=== PATIENT | male | born 1960 | race Caucasian/White ===

== ENCOUNTER 2017-02-20 16:31 | Emergency (ER) | payer MEDICAID ==
[~2017-02-20] VITALS: Ht 170.2 cm; Wt 81.6 kg
[2017-02-20 16:31] VITALS: BP 118/65
[2017-02-20] MEDS ORDERED: METF10002 PO (16:51)
[2017-02-20] MEDS ORDERED: IBUPROFEN 400 MG TABLET PO ONE (17:00)
[2017-02-20] MEDS ORDERED: IBUPROFEN 400 MG TABLET ONE (17:05)
== END 2017-02-20 18:05 | disposition home or self-care (01) ==
LOC: ER 16:35
DX: S16.1XXA Strain of muscle, fascia and tendon at neck level, initial encounter (principal); M25.511 Pain in right shoulder; V43.52XA Car driver injured in collision with other type car in traffic accident, initial encounter; Y93.89 Activity, other specified; Y92.413 State road as the place of occurrence of the external cause; Y99.8 Other external cause status
CPT/HCPCS: 72125; 99284; A4606; Z7610

== ENCOUNTER 2017-05-30 15:52 | Inpatient (IN) | payer MEDICAID, OTHER ==
[~2017-05-30] VITALS: Ht 175.3 cm; Wt 78.9 kg
[~2017-05-30 15:52] MED LIST: METF10002 PO
--- NOTE | 2017-05-30 16:13 | NUR ---
pt ambulatory to er bed 11. c/o intermitttent pressure like midsternal chest pain x 1 week. gowned and placed on monitor. stable vitals. awaiting md gerber.
--- NOTE | 2017-05-30 16:39 | NUR ---
dr shirley at bedside for eval.
--- NOTE | 2017-05-30 16:47 | NUR ---
iv line started blood drawn and sent to lab.
[2017-05-30 16:53] LABS: BASOPHILS % (AUTO) 0.5 % (0.0-2.0); EOSINOPHILS # (AUTO) 0.2 /CMM (0.0-0.7); EOSINOPHILS % (AUTO) 1.8 % (0.0-6.0); HEMATOCRIT 43 % (39-51); LYMPHOCYTES # (AUTO) 1.6 /CMM (0.8-4.8); MEAN CORPUSCULAR HEMOGLOBIN 30 PG (26.0-33.0); MEAN CORPUSCULAR HGB CONC 35 g/dl (31.0-36.0); MEAN CORPUSCULAR VOLUME 88 fL (80-96); MONOCYTES # (AUTO) 0.3 /CMM (0.1-1.30); MONOCYTES % (AUTO) 3.4 % (2.0-12.0); NEUTROPHILS # (AUTO) 7.6 /CMM (1.8-8.9); NEUTROPHILS % (AUTO) 78.3 % (43.0-81.0); PLATELET COUNT (AUTO) 208 /CMM (150-450); RDW COEFFICIENT OF VARIATION 12.7 (11.5-15.0); RED BLOOD CELL COUNT(AUTO) 4.92 MIL/uL (4.5-6.0); WHITE BLOOD COUNT (AUTO) 9.7 K/uL (4.3-11.0)
[2017-05-30] MEDS ORDERED: ASPIRIN 325 MG TABLET ONE (16:53)
--- NOTE | 2017-05-30 16:57 | NUR ---
radiology at bedside for chest xray.
[2017-05-30] MEDS ORDERED: ASPIRIN 325 MG TABLET PO ONE (17:00)
[2017-05-30 17:03] LABS: CALCIUM, SERUM 9.1 mg/dL (8.5-10.1); CARBON DIOXIDE 26 mmol/L (21-32); CHLORIDE 104 mmol/L (98-107); GLUCOSE 108 mg/dL (74-106); POTASSIUM 4.2 mmol/L (3.5-5.1); SODIUM SERUM 138 mmol/L (136-145); UREA NITROGEN, BLOOD 20 mg/dL (7-18)
[2017-05-30 17:08] LABS: INR 0.95 (0.85-1.15)
[2017-05-30 17:13] LABS: TROPONIN I < 0.017 ng/mL (0.00-0.056)
--- NOTE | 2017-05-30 18:47 | NUR ---
report given to breezy. pt awaiting transfer to floor.
--- NOTE | 2017-05-30 19:20 | NUR ---
MICROFILM PROCESSOR NOTES PATIENT BROUGHT INTO UNIT VIA GURNEY, TRANSFERRED FROM ER, ABLE TO AMBULATE FROM [place] TO BED. ALERT AND ORIENTED X 4, NO SOB NOTED, BREATHING EVEN AND UNLABORED IN NO ACUTE DISTRESS, NO C/O PAIN AT THIS TIME BUT VERBALIZED MIDSTERNAL DISCOMFORT BUT IN NO NEED OF MEDICATION. ORIENTED PATIENT TO ADMISSION PROCESS, ROOM, CALL LIGHT AND USE OF CALL LIGHT, VERBALIZED UNDERSTANDING. PATIENT'S BED PLACED IN LOW POSITION AND LOCKED IN PLACE. ALL PATIENT'S NEEDS ATTENDED TO. WILL CONTINUE TO MONITOR PATIENT.
[2017-05-30 20:00] VITALS: BP 135/82
[2017-05-30] MEDS ORDERED: DEXTROSE 50%-WATER 50 ML DISP.SYRIN IV PRN (20:30)
[2017-05-30] MEDS ORDERED: *INSULIN REGULAR(HUMULIN R)HUM 100 UNIT/ML VIAL SQ PRN (20:30)
[2017-05-30] MEDS ORDERED: INSULIN REGULAR, HUMAN 100 UNIT/ML 3 ML VIAL SQ PRN (20:30)
--- NOTE | 2017-05-30 22:00 | NUR ---
RN NOTES PATIENT'S BLOOD SUGAR @ 164 MG/DL. PATIENT REFUSED ADMINISTRATION OF INSULIN. EXPLAINED RISKS AND BENEFITS X 3, PER PATIENT HE DOESN'T NEED IT AND THAT HE IS MAINTAINING HIS BLOOD SUGAR. RESPECTED PATIENT'S REFUSAL. WILL CONTINUE TO MONITOR.
[2017-05-30] MEDS: BLOOD SUGAR DIAGNOSTIC 1 EACH STRIP VI SCH (22:25)
--- NOTE | 2017-05-30 23:40 | NUR ---
RN NOTES RECEIVED CALL FROM DR. RUANO WITH ADDITIONAL ADMISSION ORDERS. ALL ORDERS NOTED AND CARRIED OUT. PATIENT MADE AWARE AND AGREES. IN NO ACUTE DISTRESS. WILL CONTINUE TO MONITOR.
[2017-05-31] VITALS: BP 130/81
[2017-05-31] MEDS ORDERED: MORPHINE SULFATE INJ 4 MG/ML DISP.SYRIN IVP PRN
[2017-05-31] MEDS ORDERED: NITROGLYCERIN 0.4 MG/TAB BOTTLE SL PRN
[2017-05-31] MEDS ORDERED: DIPH25CA83 PO (01:54)
[2017-05-31 04:00] VITALS: BP 135/70
--- NOTE | 2017-05-31 06:26 | NUR ---
RN NOTES PATIENT UNDER TELE MONITORING WITH SINUS RHYTHM @ 85 BPM.
--- NOTE | 2017-05-31 06:26 | NUR ---
RN CLOSING NOTES PATIENT IN BED, ASLEEP BUT EASILY AWOKEN, ALERT AND ORIENTED X 4, VERBALLY RESPONSIVE, NO SOB, BREATHING EVEN AND UNLABORED, IN NO ACUTE DISTRESS. PATIENT VERBALIZED THAT HE CONTINUES TO HAVE DISCOMFORT ON THE MIDSTERNAL AREA BUT NOT CAUSING HIM DISTRESS OR NEED FOR PAIN MEDICATION. PT'S BLOOD SUGAR LEVEL CHECKED @ 155 MG/DL. PATIENT CONTINUES TO REFUSE INSULIN PER SLIDING SCALE. EXPLAINED RISKS AND BENEFITS TO PATIENT BUT CONTINUES TO REFUSE. ALL PATIENT'S NEEDS MET, BED PLACED IN LOW POSITION AND LOCKED IN PLACE. WILL ENDORSE TO AM SHIFT NURSE FOR CONTINUITY OF CARE.
[2017-05-31 06:54] LABS: BASOPHILS % (AUTO) 0.5 % (0.0-2.0); EOSINOPHILS # (AUTO) 0.3 /CMM (0.0-0.7); EOSINOPHILS % (AUTO) 3.3 % (0.0-6.0); HEMATOCRIT 42 % (39-51); HEMOGLOBIN 14.1 g/dL (13.5-17.5); LYMPHOCYTES # (AUTO) 2.2 /CMM (0.8-4.8); LYMPHOCYTES % (AUTO) 26.5 % (20.0-44.0); MEAN CORPUSCULAR HEMOGLOBIN 30 PG (26.0-33.0); MEAN CORPUSCULAR HGB CONC 34 g/dl (31.0-36.0); MEAN CORPUSCULAR VOLUME 89 fL (80-96); MONOCYTES # (AUTO) 0.7 /CMM (0.1-1.30); MONOCYTES % (AUTO) 8.8 % (2.0-12.0); NEUTROPHILS # (AUTO) 5.1 /CMM (1.8-8.9); NEUTROPHILS % (AUTO) 60.9 % (43.0-81.0); PLATELET COUNT (AUTO) 191 /CMM (150-450); RDW COEFFICIENT OF VARIATION 13.5 (11.5-15.0); RED BLOOD CELL COUNT(AUTO) 4.66 MIL/uL (4.5-6.0); WHITE BLOOD COUNT (AUTO) 8.3 K/uL (4.3-11.0)
[2017-05-31 07:00] LABS: TROPONIN I < 0.017 ng/mL (0.00-0.056)
[2017-05-31] MEDS: BLOOD SUGAR DIAGNOSTIC 1 EACH STRIP VI SCH (07:16)
[2017-05-31 07:23] LABS: CALCIUM, SERUM 9.2 mg/dL (8.5-10.1); CARBON DIOXIDE 27 mmol/L (21-32); CHLORIDE 103 mmol/L (98-107); GLUCOSE 150 mg/dL (74-106); POTASSIUM 4.5 mmol/L (3.5-5.1); SODIUM SERUM 139 mmol/L (136-145); UREA NITROGEN, BLOOD 18 mg/dL (7-18)
--- NOTE | 2017-05-31 07:25 | NUR ---
GARDEN EQUIPMENT MECHANIC OPENING NOTES RECEIVED PT FROM [facility] NURSE IN STABLE CONDITION. PT IS A/O X3. NO SOB OR SIGNS OF DISTRESS NOTED. BREATHING IS EVEN AND UNLABORED. PT IS SINUS RHYTHM ON THE TELE MONITOR WITH A HR OF 61. PT DENIES ANY CHEST PAIN AT THIS TIME. IV TO RIGHT AC NOTED TO BE PATENT AND INTACT. NO REDNESS OR SIGNS OF INFILTRATION NOTED. BED IN LOW LOCKED POSITION, SIDE RAILS UP X2, CALL LIGHT WITHIN REACH. WILL CONTINUE TO MONITOR.
[2017-05-31 08:00] VITALS: BP 138/70
[2017-05-31] MEDS ORDERED: ASPIRIN 81 MG TAB.CHEW PO SCH (09:00)
--- NOTE | 2017-05-31 11:26 | NUR ---
CEREAL POPPERGEAR CUTTER NOTES PT WAS DISCHARGED FROM FACILITY IN STABLE CONDITION. ALL NEEDS WERE MET DURING SHIFT AND ORDERS CARRIED OUT ACCORDINGLY. ALL DISCHARGE INSTRUCTIONS DISCUSSED WITH PT UTILIZING EXIT CARE MATERIALS. PT WAS REMINDED TO FOLLOW UP WITH HIS PRIMARY CARE PHYSICIAN ALONG WITH SCHEDULING A STRESS TEST. PT ACKNOWLEDGED ALL DISCHARGE INSTRUCTIONS AND VERBALIZED FULL UNDERSTANDING. HE SIGNED ALL RESPECTIVE PAPERWORK. IV SUCCESSFULLY REMOVED WITHOUT ANY COMPLICATIONS. HE WAS SAFELY ESCORTED TO THE MAIN LOBBY AND LEFT VIA PRIVATE VEHICLE.
== END 2017-05-31 11:30 | disposition home or self-care (01) | DRG 198 ==
LOC: ER 16:00 → TELE 20:13
PROVIDERS: ADMIT Nurse Practitioner Acute Care; ATTEND Nurse Practitioner Acute Care
DX: I24.9 Acute ischemic heart disease, unspecified (principal); E11.9 Type 2 diabetes mellitus without complications; E78.5 Hyperlipidemia, unspecified; Z82.49 Family history of ischemic heart disease and other diseases of the circulatory system
CPT/HCPCS: 36415; 71045-TC; 80048-TC; 82962-TC; 84484-TC; 85025-TC; 85730-TC; 87081-TC; 93307-TC; A4606; J1815; Z7610

== ENCOUNTER 2019-06-15 15:24 | Emergency (ER) | payer OTHER ==
[~2019-06-15] VITALS: Ht 175.3 cm; Wt 78.0 kg
[~2019-06-15 15:24] MED LIST changes: +DIPH25CA83 PO; +METF-442 PO; -METF10002 PO
--- NOTE | 2019-06-15 15:40 | NUR ---
RASH TO CHEST AREA NOTED TODAY WHILE TAKING A SHOWER. PATIENT A/OX4, BREATHING EVEN AND UNLABORED, NO SOB NOTED. NEEDS ATTENDED.
[2019-06-15 16:21] LABS: BASOPHILS # (AUTO) 0.1 /CMM (0.0-0.2); BASOPHILS % (AUTO) 0.7 % (0.0-2.0); EOSINOPHILS % (AUTO) 0.4 % (0.0-6.0); HEMATOCRIT 43 % (39-51); HEMOGLOBIN 14.3 g/dL (13.5-17.5); LYMPHOCYTES # (AUTO) 0.9 /CMM (0.8-4.8); MEAN CORPUSCULAR HGB CONC 33 g/dl (31.0-36.0); MEAN CORPUSCULAR VOLUME 89 fL (80-96); MONOCYTES # (AUTO) 0.4 /CMM (0.1-1.30); NEUTROPHILS # (AUTO) 6.7 /CMM (1.8-8.9); NEUTROPHILS % (AUTO) 82.9 % (43.0-81.0); PLATELET COUNT (AUTO) 167 /CMM (150-450); RED BLOOD CELL COUNT(AUTO) 4.83 MIL/uL (4.5-6.0); WHITE BLOOD COUNT (AUTO) 8.1 K/uL (4.3-11.0)
[2019-06-15 16:37] LABS: CALCIUM, SERUM 9.1 mg/dL (8.5-10.1); CARBON DIOXIDE 29 mmol/L (21-32); CHLORIDE 102 mmol/L (98-107); GLUCOSE 146 mg/dL (74-106); POTASSIUM 4.8 mmol/L (3.5-5.1); SODIUM SERUM 138 mmol/L (136-145); UREA NITROGEN, BLOOD 21 mg/dL (7-18)
[2019-06-15 16:43] LABS: ALANINE AMINOTRANSFERASE 49 U/L (12-78); ALBUMIN 3.9 g/dL (3.4-5.0); ALKALINE PHOSPHATASE 69 U/L (46-116); ASPARTATE AMINOTRANSFERASE 30 U/L (15-37); BILIRUBIN,DIRECT 0.1 mg/dL (0.0-0.2); BILIRUBIN,TOTAL 0.5 mg/dL (0.2-1.0); LIPASE 146 U/L (73-393); TOTAL PROTEIN, SERUM 6.9 g/dL (6.4-8.2)
[2019-06-15 17:35] VITALS: BP 127/76
--- NOTE | 2019-06-15 17:35 | NUR ---
Patient discharged to home in stable condition. Written and verbal after care instructions given. Patient verbalizes understanding of instruction.
== END 2019-06-15 17:35 | disposition home or self-care (01) ==
LOC: ER 15:24
DX: B02.9 Zoster without complications (principal); R10.13 Epigastric pain; E11.9 Type 2 diabetes mellitus without complications; Z60.2 Problems related to living alone; Z79.84 Long term (current) use of oral hypoglycemic drugs
CPT/HCPCS: 36415; 71045-TC; 80048-TC; 80076-TC; 83690-TC; 84484-TC; 85025-TC

== ENCOUNTER 2019-09-21 19:35 | Inpatient (IN) | payer OTHER ==
[~2019-09-21] VITALS: Ht 182.9 cm; Wt 78.0 kg
--- NOTE | 2019-09-21 19:41 | NUR ---
PT AAOX4. BIBSELF C/O MIDSTERNAL 6/ CP X COUPLE WEEKS. PT STATED NON RADIATING. PLACED ON ACCOUNTANT MANAGER AND PULSE OX. VSS. NO ACUTE DISTRESS NOTED. AWAITING MD FOR EVAL AND ORDERS.
--- NOTE | 2019-09-21 20:08 | NUR ---
RELATIONS MANAGER AT BEDSIDE FOR LABS.
[2019-09-21 20:10] LABS: BASOPHILS % (AUTO) 0.5 % (0.0-2.0); HEMATOCRIT 44 % (39-51); HEMOGLOBIN 14.7 g/dL (13.5-17.5); LYMPHOCYTES # (AUTO) 2.1 /CMM (0.8-4.8); LYMPHOCYTES % (AUTO) 23.8 % (20.0-44.0); MEAN CORPUSCULAR HGB CONC 33 g/dl (31.0-36.0); MEAN CORPUSCULAR VOLUME 91 fL (80-96); MONOCYTES # (AUTO) 0.7 /CMM (0.1-1.30); MONOCYTES % (AUTO) 7.6 % (2.0-12.0); NEUTROPHILS # (AUTO) 5.9 /CMM (1.8-8.9); NEUTROPHILS % (AUTO) 66.1 % (43.0-81.0); PLATELET COUNT (AUTO) 195 /CMM (150-450); RED BLOOD CELL COUNT(AUTO) 4.84 MIL/uL (4.5-6.0)
[2019-09-21 20:30] LABS: CALCIUM, SERUM 9.2 mg/dL (8.5-10.1); CREATININE 1.1 mg/dL (0.6-1.3); POTASSIUM 4.3 mmol/L (3.5-5.1)
[2019-09-21] MEDS ORDERED: ASPIRIN 325 MG TABLET ONE (21:24)
[2019-09-21] MEDS ORDERED: ASPIRIN 325 MG TABLET PO ONE (21:30)
--- NOTE | 2019-09-21 21:32 | NUR ---
PT RESTING COMFORTABLY. ON PHONE WITH FAMILY. VSS.
--- NOTE | 2019-09-21 22:05 | NUR ---
PT STATED HE DOES NOT RECALL MEDICATIONS HE TAKES AT HOME.
--- NOTE | 2019-09-21 22:38 | NUR ---
TELE BED: 938-5
--- NOTE | 2019-09-21 22:54 | NUR ---
REPORT GIVEN TO REBECCA ZHU FOR VENKAT
--- NOTE | 2019-09-21 23:09 | NUR ---
PT TRANSFERED PER ACLS PROTOCOL
--- NOTE | 2019-09-21 23:15 | NUR ---
RN NOTE PT ARRIVED AT 2310. PT IS A/O X 4, AMBULATORY, SR ON TELE MONITOR, DENIES ANY PAIN AT THIS TIME. IV #20 TO RAC PATENT AND INTACT AND FLUSHING WELL. VS 121/71 p 75. RR 14, O2 SAT 98% ON RA. CALL LIGHT WITHIN REACH, SAFETY MEASURES IN PLACE, WILL CONTINUE TO MONITOR PT.
[2019-09-21] MEDS ORDERED: NITROGLYCERIN 0.4 MG/TAB BOTTLE SL PRN (23:30)
[2019-09-21] MEDS ORDERED: MORPHINE SULFATE INJ 2 MG/ML DISP.SYRIN IV PRN (23:30)
[2019-09-21] MEDS ORDERED: Z GUARD REMEDY 2 OZ OINT TP PRN (23:30)
[2019-09-21] MEDS ORDERED: ZOLPIDEM TARTRATE 5 MG TABLET PO PRN (23:30)
[2019-09-21] MEDS ORDERED: ACETAMINOPHEN 325 MG TABLET PO PRN (23:30)
[2019-09-21] MEDS ORDERED: MAG HYDROX/AL HYDROX/SIMETH 30 ML UDC PO PRN (23:30)
[2019-09-21] MEDS ORDERED: MAGNESIUM HYDROXIDE 30 ML UDC PO PRN (23:30)
[2019-09-21] MEDS ORDERED: HYDROCODONE/APAP 5/325MG 1 EACH TABLET PO PRN (23:30)
[2019-09-21] MEDS ORDERED: ONDANSETRON HCL/PF 4 MG/2 ML VIAL IVP PRN (23:30)
[2019-09-22] VITALS: BP 121/71
--- NOTE | 2019-09-22 04:00 | NUR ---
RN NOTE PT REFUSED 0400 V/S PT STATES WANTS TO SLEEP, PT CURRENTLY S/R ON MONITOR HR 71.
--- NOTE | 2019-09-22 06:57 | NUR ---
RN MS CLOSING NOTE PT ASLEEP, RESTING COMFORTABLY, NO C/O PAIN DURING SHIFT. PT CURRENTLY SR ON TELE MONITOR. IV TO RAC PATENT AND INTACT AND FLUSHING WELL. PT ON RA. CALL LIGHT WITHIN REACH, SIDE RAILS UP X 2, BED LOCKED AND IN LOWEST POSITION. SAFETY MEASURES IN PLACE. ENDORSED TO AM RN FOR VENKAT. Addendum: 09/22/19 at 0710 by SADE TRACY RN ENDORSED TO AM RN TO OBTAIN ORDER FROM FOR DVT PROPHYLAXIS.
[2019-09-22] MEDS ORDERED: PANTOPRAZOLE 40 MG TABLET.DR PO SCH (07:30)
[2019-09-22 08:00] VITALS: BP 112/68
--- NOTE | 2019-09-22 08:00 | NUR ---
BOWLING ALLEY MANAGER AM NOTES RECEIVED PT A/O X 4, FORGETFUL. AMBULATORY, SR ON TELE MONITOR, DENIES ANY PAIN AT THIS TIME. IV #20 TO RAC PATENT AND INTACT AND FLUSHING WELL. MED RECON NURSE AT THE BEDSIDE CLARIFYING PT'S MEDS. CALL LIGHT WITHIN REACH, SAFETY MEASURES IN PLACE, WILL CONTINUE TO MONITOR PT.
--- NOTE | 2019-09-22 08:20 | NUR ---
SPOKE TO VIVI SINCLAIR HOSPITALIST REGARDING PT'S VTE SCORE OF 2 FOR ANTICOAGULANT ORDER WITH NO ORDERS AT THIS TIME BECAUSE VIVI SINCLAIR STATED THAT AFTER THE CTA PROCEDURE,PT WILL BE DISCHARGED HOME.
[2019-09-22] MEDS ORDERED: SIMV-49 PO (08:50)
[2019-09-22] MEDS ORDERED: SITA100T PO (08:50)
[2019-09-22] MEDS ORDERED: ASPIRIN 81 MG TAB.CHEW PO SCH (09:00)
[2019-09-22] MEDS ORDERED: IV NS 0.9% 500 ML IV PRN (09:00)
[2019-09-22] MEDS ORDERED: METFORMIN 500 MG TABLET PO SCH (09:00)
[2019-09-22] MEDS ORDERED: IV NS 0.9% 250 ML IV ONE (09:21)
[2019-09-22] MEDS ORDERED: METOPROLOL TARTRATE INJ 5 MG/5 ML AMPUL ONE (09:21)
[2019-09-22] MEDS ORDERED: IOHEXOL-350 100 ML VIAL IV ONE (09:21)
[2019-09-22] MEDS ORDERED: NITROGLYCERIN 0.4 MG/TAB BOTTLE SL PRN (09:30)
[2019-09-22] MEDS: METOPROLOL TARTRATE INJ 5 MG/5 ML AMPUL IVP PRN ×3 (09:35→09:50)
[2019-09-22 09:50] VITALS: BP 103/66
--- NOTE | 2019-09-22 10:17 | NUR ---
pt vital sign stable after CTA report given to iftikhar ZHU aware to hold metformin for 48hrs pt vital sign stable awake alert oriented GCS OF 15
--- NOTE | 2019-09-22 10:32 | NUR ---
Pt came back from [facility]-with order to hold metformin per cardiac cath for now.
[2019-09-22] MEDS ORDERED: METOPROLOL TARTRATE 50 MG TABLET PO SCH (12:00)
--- NOTE | 2019-09-22 12:51 | NUR ---
DISCHARGED PT HOME WITH STABLE V/S. DENIES CHEST PAIN. V H/L REMOVED TO RT AC WITH NO BLEEDING NOTED. INSTRUCTED TO FOLLOW UP WITH PRIMARY DOCTOR IN ONE WEEK.
== END 2019-09-22 12:00 | disposition home or self-care (01) | DRG 198 ==
LOC: ER 19:35 → TELE 22:44 → MED 09-22 09:34
PROVIDERS: ADMIT Nurse Practitioner Acute Care; ATTEND Nurse Practitioner Acute Care
DX: I25.10 Atherosclerotic heart disease of native coronary artery without angina pectoris (principal); E11.9 Type 2 diabetes mellitus without complications; E78.5 Hyperlipidemia, unspecified; I10 Essential (primary) hypertension; R79.89 Other specified abnormal findings of blood chemistry; F17.210 Nicotine dependence, cigarettes, uncomplicated
CPT/HCPCS: 36415; 71045-TC; 75574; 80048-TC; 80061-TC; 84484-TC; 85025-TC; 87081-TC; 93307-TC; G0378; J3490; J7050; Q9967

== ENCOUNTER 2021-03-23 15:41 | Emergency (ER) | payer OTHER ==
[~2021-03-23] VITALS: Ht 175.3 cm; Wt 83.9 kg
[~2021-03-23 15:41] MED LIST changes: -DIPH25CA83 PO; +SIMV-49 PO; +SITA100T PO
--- NOTE | 2021-03-23 15:43 | NUR ---
BIBS FACIAL, R KNEE, AND ANKLE S/P GOT PUSHING FALLING FACE FIRST, +LOC. VITALS ARE WITHIN NORMAL LIMITS. BREATHING IS EVEN AND UNLABORED.
--- NOTE | 2021-03-23 16:19 | NUR ---
PT BROTHER MARYJO FOREMAN
--- NOTE | 2021-03-23 16:29 | NUR ---
PT BACK FROM CT
[2021-03-23] MEDS ORDERED: ACETAMINOPHEN ES 500 MG TABLET PO ONE (16:30)
[2021-03-23] MEDS ORDERED: ACETAMINOPHEN ES 500 MG TABLET ONE (16:35)
--- NOTE | 2021-03-23 17:51 | NUR ---
TECH AT BEDSIDE SPLINTING PT R LEG
[2021-03-23] MEDS ORDERED: IBUP-1953 PO (18:28)
--- NOTE | 2021-03-23 18:35 | NUR ---
Patient discharged to home in stable condition. Written and verbal after care instructions given. Patient verbalizes understanding of instruction.
[2021-03-23 18:36] VITALS: BP 125/71
== END 2021-03-23 18:38 | disposition home or self-care (01) ==
LOC: ER 15:50
DX: S82.431A Displaced oblique fracture of shaft of right fibula, initial encounter for closed fracture (principal); S00.81XA Abrasion of other part of head, initial encounter; S00.31XA Abrasion of nose, initial encounter; K21.9 Gastro-esophageal reflux disease without esophagitis; E78.5 Hyperlipidemia, unspecified; Z98.890 Other specified postprocedural states; Z60.2 Problems related to living alone; Z79.899 Other long term (current) drug therapy; Z79.84 Long term (current) use of oral hypoglycemic drugs; Y08.89XA Assault by other specified means, initial encounter; Y93.89 Activity, other specified; Y92.29 Other specified public building as the place of occurrence of the external cause; Y99.8 Other external cause status
CPT/HCPCS: 70450-TC; 70486-TC; 73562; 73610-TC

== ENCOUNTER 2021-06-03 17:57 | Emergency (ER) | payer OTHER ==
[~2021-06-03] VITALS: Ht 175.3 cm; Wt 79.4 kg
[~2021-06-03 17:57] MED LIST changes: +IBUP-1953 PO
[2021-06-03 18:23] VITALS: BP 132/84
[2021-06-03] MEDS ORDERED: VALA100026 PO (19:01)
--- NOTE | 2021-06-03 19:10 | NUR ---
Patient discharged to home in stable condition. Written and verbal after care instructions given. Patient verbalizes understanding of instruction.
== END 2021-06-03 19:32 | disposition home or self-care (01) ==
LOC: ER 17:57
DX: B02.9 Zoster without complications (principal); K21.9 Gastro-esophageal reflux disease without esophagitis; E11.9 Type 2 diabetes mellitus without complications; E78.5 Hyperlipidemia, unspecified; Z86.69 Personal history of other diseases of the nervous system and sense organs; Z60.2 Problems related to living alone; Z79.1 Long term (current) use of non-steroidal anti-inflammatories (NSAID); Z79.84 Long term (current) use of oral hypoglycemic drugs; Z79.899 Other long term (current) drug therapy
CPT/HCPCS: 73610-TC